=== PATIENT | female | born 1960 | race Caucasian/White ===

== ENCOUNTER 2020-12-31 09:29 | Outpatient (CLI) | payer BC ==
[~2020-12-31 09:29] MED LIST: ATOR10TA9 PO; BUPR200T3 PO; CHOL200024 PO; CYAN2500 PO; LOSA100T14 PO; MELO15TA24 PO; PANT40TA6 PO; TRAZ50TA66 PO
[2020-12-31 10:08] LABS: BASOPHILS % (AUTO) 1 % (0-1); EOSINOPHILS % (AUTO) 2 % (1-7); LYMPHOCYTES % (AUTO) 32 % (22-44); MEAN CORPUSCULAR HEMOGLOBIN 32.5 pg (27.0-34.8); MEAN PLATELET VOLUME 6.9 fL (7.4-10.4); MONOCYTES % (AUTO) 8 % (2-9); NEUTROPHILS % (AUTO) 56 % (42-75); PLATELET COUNT 253 x10^3/uL (130-400); RED BLOOD COUNT 4.44 x10^6/uL (3.82-5.3); RED CELL DISTRIBUTION WIDTH 12.4 % (9.6-15.2)
[2020-12-31 10:20] LABS: ALANINE AMINOTRANSFERASE 26 U/L (12-78); ALBUMIN 3.6 g/dL (3.4-5.0); CHLORIDE 107 mmol/L (98-107)
[2020-12-31 10:45] LABS: ANION GAP 2 mmol/L (5-15); BILIRUBIN,TOTAL 0.4 mg/dL (0.2-1.0); CALCIUM 8.8 mg/dL (8.5-10.1); CHOLESTEROL, TOTAL 231 mg/dL (140-239)
[2020-12-31 10:58] LABS: ALKALINE PHOSPHATASE 69 U/L (45-117); CHOL/HDL RATIO 4.3; CREATININE 0.65 mg/dL (0.55-1.02); FOLATE LEVEL 7.8 ng/mL (3.1-17.5); HDL CHOL % 23 % (28-40); HDL CHOLESTEROL (DIRECT) 54 mg/dL (40-60); LDL CHOLESTEROL,CALCULATED 161 mg/dL (54-169); T4 (THYROXINE) 8.9 mcg/dL (4.8-13.9); TOTAL PROTEIN 7.1 g/dL (6.4-8.2); TRIGLYCERIDES 82 mg/dL (50-200); VLDL CHOLESTEROL 16 mg/dL (0-25)
== END 2020-12-31 23:59 | disposition home or self-care (01) ==
LOC: LAB 09:29
PROVIDERS: ATTEND Nurse Practitioner
DX: I10 Essential (primary) hypertension (principal); N81.89 Other female genital prolapse; E21.3 Hyperparathyroidism, unspecified; R53.83 Other fatigue; G47.09 Other insomnia
CPT/HCPCS: 36415; 80053; 80061; 82306; 82330; 82607; 82746; 83970; 84436; 84443; 85025